=== PATIENT | female | born 1930 | race Caucasian/White ===

== ENCOUNTER 2019-05-18 08:53 | Day surgery (SDC) | payer MEDICARE ==
[~2019-05-18 08:53] MED LIST: Buffered Lidocaine 1% SYRIN* 1 ML/SYRINGE INTRADERM ONE
[2019-05-18] MEDS ORDERED: Proparacaine 0.5% OPHTH.SOL* 15 ML BTL ONE (10:41)
[2019-05-18] MEDS ORDERED: Cyclopentolate 1% OPTH.SOL* 2 ML BTL ONE (10:41)
[2019-05-18] MEDS ORDERED: Povidone Iodine 5% OPTH* 30 ML BTL ONE (10:41)
[2019-05-18] MEDS ORDERED: Phenylephrine OPHTH SOL 2.5%* 2 ML ONE (10:41)
[2019-05-18] MEDS ORDERED: Lidocaine 2% w/ EPI 1:200,000* 20 ML SDV VIAL ONE (10:41)
[2019-05-18] MEDS ORDERED: acetaZOLAMIDE TAB* 250 MG ONE (10:41)
[2019-05-18] MEDS ORDERED: Neomycin/Polymy/Dex OPTH.SUSP* MAXITROL 0.1% 5 ML ONE (10:41)
[2019-05-18] MEDS ORDERED: Ketorolac 0.5% OPHTH (NF) 0.5 % 5 ML BTL ONE (10:41)
[2019-05-18] MEDS ORDERED: Lidocaine 1% MPF ** 5 ML VIAL ONE (10:41)
[2019-05-18] MEDS ORDERED: Midazolam* 1 MG/ML 2 ML VIAL (2 MG) ONE (11:05)
[2019-05-18 12:05] VITALS: BP 142/73
--- NOTE | 2019-05-18 14:57 | OP ---
DATE OF OPERATION: 05/18/19 - [facility] DATE OF : [birth year] SURGEON: Fortino Joyce MD PREOPERATIVE DIAGNOSIS: Cataract, right eye. POSTOPERATIVE DIAGNOSIS: Cataract, right eye. OPERATIVE PROCEDURE: Extracapsular cataract extraction with intraocular lens implant and iStent, right eye. DESCRIPTION OF PROCEDURE: The patient was brought to the operating room after being given 1/2% Alcaine with epinephrine drops in the preoperative area. The eye was prepped and draped in the usual sterile fashion. Sterile drape and eyelid speculum were placed. Again, topical 1/2% Alcaine with epinephrine was given. A paracentesis incision was made at the 9 o'clock position with the No.75 blade. Clear cornea incision 2.2 x 2.2-mm was created at the 12 o'clock position starting at the anterior limbus using the 2.2-mm keratome. The anterior chamber was irrigated with 0.4 mL of 1% non-preservative intracameral lidocaine and filled with DisCoVisc. A capsulorrhexis was completed using the cystotome and the Utrata forceps. Hydrodissection was performed with balanced salt solution. The lens nucleus was removed with the Phacoemulsification handpiece without incident. Cortex was removed with the irrigation-aspiration handpiece. The capsular bag was re-inflated using DisCoVisc and an [id number] 23 implant was inserted with the shooter followed by an iStent inject inserted at the 2 o'clock and 4 o'clock position in the eye without difficult with its shooter. The irrigation-aspiration handpiece was used to remove all residual DisCoVisc. The eye was refilled with balanced salt solution and the wound checked and found to be watertight. Topical Maxitrol drops were given. [id number]/[facility] #: [id number] MTDD
== END 2019-05-18 11:56 | disposition home or self-care (01) ==
LOC: OREAST 08:53
PROVIDERS: ATTEND Specialist
DX: H25.811 Combined forms of age-related cataract, right eye (principal); H40.1231 Low-tension glaucoma, bilateral, mild stage; M81.0 Age-related osteoporosis without current pathological fracture; M19.90 Unspecified osteoarthritis, unspecified site; L40.9 Psoriasis, unspecified; I10 Essential (primary) hypertension
CPT/HCPCS: A9270-GY; C1783; J2250; V2632

== ENCOUNTER 2019-05-25 08:01 | Day surgery (SDC) | payer MEDICARE ==
[~2019-05-25 08:01] MED LIST changes: +Acetaminophen TAB* 325 MG PO PRN
[2019-05-25] MEDS ORDERED: fentaNYL* 50 MCG/ML 2 ML VIAL (100 MCG VIAL) ONE (08:52)
[2019-05-25] MEDS ORDERED: Midazolam* 1 MG/ML 5 ML VIAL (5 MG) ONE (08:52)
[2019-05-25 11:00] VITALS: BP 142/77
[2019-05-25] MEDS ORDERED: Lidocaine 1% MPF ** 5 ML VIAL ONE (12:50)
[2019-05-25] MEDS ORDERED: Cyclopentolate 1% OPTH.SOL* 2 ML BTL ONE (12:50)
[2019-05-25] MEDS ORDERED: acetaZOLAMIDE TAB* 250 MG ONE (12:50)
[2019-05-25] MEDS ORDERED: Proparacaine 0.5% OPHTH.SOL* 15 ML BTL ONE (12:51)
[2019-05-25] MEDS ORDERED: Phenylephrine OPHTH SOL 2.5%* 2 ML ONE (12:51)
[2019-05-25] MEDS ORDERED: Povidone Iodine 5% OPTH* 30 ML BTL ONE (12:51)
[2019-05-25] MEDS ORDERED: Ketorolac 0.5% OPHTH (NF) 0.5 % 5 ML BTL ONE (12:51)
[2019-05-25] MEDS ORDERED: Lidocaine 2% w/ EPI 1:200,000* 20 ML SDV VIAL ONE (12:51)
[2019-05-25] MEDS ORDERED: Neomycin/Polymy/Dex OPTH.SUSP* MAXITROL 0.1% 5 ML ONE (12:51)
--- NOTE | 2019-05-25 15:14 | OP ---
DATE OF OPERATION: 05/25/19 [facility] DATE OF : [birth year] SURGEON: Fortino Joyce MD PREOPERATIVE DIAGNOSIS: Cataract and glaucoma. Left. POSTOPERATIVE DIAGNOSIS: Cataract and glaucoma. Left. OPERATIVE PROCEDURE: Extracapsular cataract extraction with intraocular lens implant and iStent, left eye. DESCRIPTION OF PROCEDURE: The patient was brought to the operating room after being given 1/2% Alcaine with epinephrine drops in the preoperative area. The eye was prepped and draped in the usual sterile fashion. Sterile drape and eyelid speculum were placed. Again, topical 1/2% Alcaine with epinephrine was given. A paracentesis incision was made at the 3 o'clock position with the No.75 blade. Clear cornea incision 2.2 x 2.2-mm was created at the 6 o'clock position starting at the anterior limbus using the 2.2-mm keratome. The anterior chamber was irrigated with 0.4 mL of 1% non-preservative intracameral lidocaine and filled with DisCoVisc. A capsulorrhexis was completed using the cystotome and the Utrata forceps. Hydrodissection was performed with balanced salt solution. The lens nucleus was removed with the Phacoemulsification handpiece without incident. Cortex was removed with the irrigation-aspiration handpiece. The capsular bag was re-inflated using DisCoVisc and an SN60WF 22.5 implant was inserted with the shooter followed by iSchinmay placed at the 8 o' clock and 10 o'clock positions. The irrigation- aspiration handpiece was used to remove all residual DisCoVisc. The eye was refilled with balanced salt solution and the wound checked and found to be watertight. Topical Maxitrol drops were given. [id number]/[facility] #: [id number] MTDD
== END 2019-05-25 10:47 | disposition home or self-care (01) ==
LOC: OREAST 08:01
PROVIDERS: ATTEND Specialist
DX: H25.812 Combined forms of age-related cataract, left eye (principal); H40.1231 Low-tension glaucoma, bilateral, mild stage; Z96.1 Presence of intraocular lens; M81.0 Age-related osteoporosis without current pathological fracture; M19.90 Unspecified osteoarthritis, unspecified site; I10 Essential (primary) hypertension
CPT/HCPCS: A9270-GY; C1783; J2250; J3010; V2632